=== PATIENT | male | born 1985 | race American Indian/Alaskan Native ===

== ENCOUNTER 2018-01-19 21:43 | Emergency (ER) | payer OTHER ==
--- NOTE | 2018-01-20 00:42 | XRay Report ---
FINAL REPORT EXAM: XR FINGER(S) 2+V LT HISTORY: Injury TECHNIQUE: Four views of the 2nd and 3rd fingers of the left hand were obtained. FINDINGS: There is an acute obliquely oriented nondisplaced fracture of the tuft of the distal phalanx of the 2nd finger with surrounding soft tissue swelling and deformity. There is no evidence of fracture involving the middle finger. There is swelling around the distal interphalangeal joint of the 3rd finger. There is no evidence of radiopaque foreign body. IMPRESSION: Acute nondisplaced obliquely oriented fracture of the tuft of the distal phalanx of the 2nd finger with surrounding soft tissue swelling and deformity. No acute fracture involving the 3rd finger as described.
[2018-01-20 01:19] VITALS: BP 135/89
[2018-01-20] MEDS ORDERED: PERCOCET 5/325 PO ONE (02:00)
[2018-01-20] MEDS ORDERED: PERCOCET 5/325 ONE (02:02)
--- NOTE | 2018-01-20 04:37 | Emergency Department Report ---
ED Upper Extremity Inj HPI - General Chief Complaint: Extremity Injury, Upper Stated Complaint: HAND INJURY Time Seen by Provider: 01/20/18 03:37 Source: patient Mode of arrival: Ambulatory Limitations: No Limitations - History of Present Illness Initial Comments: 32-year-old [place] male comes in today for complaint of left first in third finger injury. Patient reports that he dropped a weight at the gym and it bounced up high and hit his finger. Patient has finger nail pulled off with a laceration to the middle finger. Patient reports no past medical history currently takes no medications on a daily basis and has no known drug allergies. Reports that this happened on Wednesday approximately 8:30 PM. Complaint: Injury to:: left Time: 20:30 (Wednesday night) Other Extremity Injury: Fingers: Left (index) Other Injuries: none Handedness: right Severity scale (0 -10): 10 Improves With: none Worsens With: movement of extremity - Related Data Previous Rx's Medication Instructions Recorded Last Taken Type Cephalexin [Keflex] 500 mg PO BID #20 capsule 01/20/18 Unknown Rx Ibuprofen [Motrin 800 MG tab] 800 mg PO Q8HR PRN #30 tablet 01/20/18 Unknown Rx Oxycodone HCl/Acetaminophen 1 each PO Q6HR PRN #12 tablet 01/20/18 Unknown Rx [Percocet 7.5/325 mg] Allergies Allergy/AdvReac Type Severity Reaction Status Date / Time No Known Allergies Allergy Unverified 01/19/18 22:17 ED Review of Systems ROS: Stated complaint: HAND INJURY Other details as noted in HPI Skin: change in hair/nails, other (cut to the left index finger) ED Past Medical Hx - Past Medical History Previous Medical History?: No - Surgical History Past Surgical History?: No - Social History Smoking Status: Current Some Day Smoker Substance Use Type: None - Medications Home Medications: Home Medications Medication Instructions Recorded Confirmed Last Taken Type Cephalexin [Keflex] 500 mg PO BID #20 capsule 01/20/18 Unknown Rx Ibuprofen [Motrin 800 MG tab] 800 mg PO Q8HR PRN #30 tablet 01/20/18 Unknown Rx Oxycodone HCl/Acetaminophen 1 each PO Q6HR PRN #12 tablet 01/20/18 Unknown Rx [Percocet 7.5/325 mg] ED Physical Exam - General Limitations: No Limitations ED Course Vital Signs 01/19/18 01/20/18 22:11 01:11 Temperature 98.3 F 98.3 F Pulse Rate 65 58 L Respiratory 18 18 Rate Blood Pressure 117/74 135/89 O2 Sat by Pulse 98 98 Oximetry ED Medical Decision Making - Radiology Data Radiology results: report reviewed, image reviewed FINAL REPORT EXAM: XR FINGER(S) 2+V LT HISTORY: Injury TECHNIQUE: Four views of the 2nd and 3rd fingers of the left hand were obtained. FINDINGS: There is an acute obliquely oriented nondisplaced fracture of the tuft of the distal phalanx of the 2nd finger with surrounding soft tissue swelling and deformity. There is no evidence of fracture involving the middle finger. There is swelling around the distal interphalangeal joint of the 3rd finger. There is no evidence of radiopaque foreign body. IMPRESSION: Acute nondisplaced obliquely oriented fracture of the tuft of the distal phalanx of the 2nd finger with surrounding soft tissue swelling and deformity. No acute fracture involving the 3rd finger as described. Transcribed By: RB Dictated By: BITA BELTRÁN MD Electronically Authenticated By: BITA BELTRÁN MD Signed Date/Time: 01/20/1835 DD/ TD/TT: 01/20/1835 Critical care attestation.: If time is entered above; I have spent that time in minutes in the direct care of this critically ill patient, excluding procedure time. ED Disposition Clinical Impression: Fracture, finger, distal phalanx, open Qualifiers: Encounter type: initial encounter Finger: index finger Fracture alignment: nondisplaced Laterality: left Qualified Code(s): S62.661B - Nondisplaced fracture of distal phalanx of left index finger, initial encounter for open fracture Disposition: -01 TO HOME OR SELFCARE Is pt being admited?: No Does the pt Need Aspirin: No Condition: Stable Instructions: Finger Fracture (ED), Suture Care (ED), Laceration (ED) Additional Instructions: Please take pain medication as prescribed. Please complete antibiotics as prescribed. Please keep wound clean and dry. It is very important for you to follow up with a hand specialist I have listed their information below. They have several locations. Prescriptions: Cephalexin [Keflex] 500 mg PO BID #20 capsule Ibuprofen [Motrin 800 MG tab] 800 mg PO Q8HR PRN #30 tablet PRN Reason: Pain , Severe (7-10) Oxycodone HCl/Acetaminophen [Percocet 7.5/325 mg] 1 each PO Q6HR PRN #12 tablet PRN Reason: Pain Referrals: PRIMARY CARE,MD [Primary Care Provider] - 3-5 Days Maggie, Hand Specialist [Other] - 3-5 Days Forms: Work/School Release Form(ED)
[2018-01-20] MEDS ORDERED: MOTRIN PO ONE ×2 (04:38→05:12)
[2018-01-20] MEDS ORDERED: BOOSTRIX IM ONE (04:39)
== END 2018-01-20 05:15 | disposition home or self-care (01) ==
LOC: ED 21:43
DX: S62.661B Nondisplaced fracture of distal phalanx of left index finger, initial encounter for open fracture (principal); F17.200 Nicotine dependence, unspecified, uncomplicated; W26.8XXA Contact with other sharp object(s), not elsewhere classified, initial encounter; Y93.89 Activity, other specified; Y92.89 Other specified places as the place of occurrence of the external cause; Y99.8 Other external cause status
CPT/HCPCS: 90471; 90715; 99283